=== PATIENT | male | born 1970 | race Caucasian/White ===

== ENCOUNTER 2021-02-09 08:41 | Emergency (ER) | payer BC, SELFPAY ==
[2021-02-09 08:47] VITALS: BP 152/80; PULSE 89; RESP 18; TEMP 36.2; O2SAT 99
[2021-02-09] MEDS: DEXAMETHASONE SOD PHOS INJ 4 MG/ML VIAL 10 MG PO (10:08)
[2021-02-09] MEDS: KETOROLAC (*BKC) 60 MG/2 ML VIAL IM (10:08)
--- NOTE | 2021-02-09 10:12 | ED.GENADULT ---
HPI - General Adult General Chief complaint: Unspecified <Corinne Souza PA-C - Last Filed: 02/09/21 18:29> Stated complaint: sore throat <Corinne Souza PA-C - Last Filed: 02/09/21 18:29> Time Seen by Provider: 02/09/21 09:11 <Corinne Souza PA-C - Last Filed: 02/09/21 18:29> Source: patient <SHAGGY Masterson Last Filed: 02/09/21 18:29> Mode of arrival: ambulatory <SHAGGY Masterson Last Filed: 02/09/21 18:29> Limitations: no limitations <SHAGGY Masterson Last Filed: 02/09/21 18:29> History of Present Illness HPI narrative: Patient presents with chief complaint of sore throat and left ear pain that began after having a viral-like cold 1 week ago. Patient reports that on Monday he presented to his primary care and was swabbed and treated for strep. Patient states he was placed on Augmentin. Patient reports he has noticed that his glands in his throat on both sides are still swollen and has also began having some pain to his left ear. Patient states that he began taking the Augmentin on Monday night. Patient reports that he contacted his primary care and was instructed to present to the emergency department for evaluation. Patient has not had any fevers, chills, inability to swallow, hoarse or hot potato voice. Patient denies his throat pain being worse on 1 side versus another. <SHAGGY Masterson Last Filed: 02/09/21 18:29> Related Data Home medications: Home Medications Medication Instructions Recorded Confirmed amoxicillin-pot clavulanate tablet 02/09/21 <SHAGGY Masterson Last Filed: 02/09/21 18:29> Allergies/adverse reactions: Allergies Allergy/AdvReac Type Severity Reaction Status Date / Time azithromycin Allergy Mild HIVES Verified 05/20/13 09:41 sulfamethoxazole Allergy Hives Verified 02/09/21 08:50 trimethoprim Allergy Hives Verified 02/09/21 08:50 <SHAGGY Masterson Last Filed: 02/09/21 18:29> Review of Systems Review of Systems: CONSTITUTIONAL: Denies fever, chills, or sweats. EYES: Denies visual changes, redness, or discharge. ENT: Reports congestion, sore throat, and otalgia. CARDIOVASCULAR: Denies chest pain, palpitations, or edema. RESPIRATORY: Denies cough or dyspnea. GASTROINTESTINAL: Denies abdominal pain, nausea, vomiting, or diarrhea. GENITOURINARY: Denies dysuria or hematuria. SKIN: Denies rash or itching. MUSCULOSKELETAL: Denies back pain, joint pain, or myalgia. NEUROLOGIC: Denies headache, numbness, dizziness, or weakness. PSYCHIATRIC: Denies anxiety or depression. <Corinne Souza PA-C - Last Filed: 02/09/21 18:29> Exam Narrative: GENERAL: Well-appearing, well-nourished, and in no acute distress. HEAD: Normocephalic, atraumatic. EYES: PERRLA and EOMI. ENT: Nares clear, no rhinorrhea or epistaxis. Mucous membranes moist. Oropharynx with tonsillar hypertrophy bilaterally without exudate or other lesions. Airway patent. Voice normal. Patient handling his own secretions without difficulty. Copious cerumen in B/L ears however TM visualized is not erythematous. serous fluid left ear is clear. Bilateral TMs pearly adam nonbulging NECK: Supple. mild submandibular lymphadenopathy bilaterally. CHEST: Clear to auscultation. No respiratory distress. No wheezes rales or rhonchi HEART: Regular rate and rhythm. Normal peripheral pulses. EXTREMITIES: Normal range of motion. No edema. SKIN: Warm, dry, no rash. NEURO: No focal deficits. Alert and oriented x3. PSYCH: Normal mood and affect. <Corinne Souza PA-C - Last Filed: 02/09/21 18:29> Course Vital Signs Vital signs: Vital Signs Temperature 97.2 F L 02/09/21 08:47 Pulse Rate 89 02/09/21 08:47 Respiratory Rate 18 02/09/21 08:47 Blood Pressure 152/80 H 02/09/21 08:47 Pulse Oximetry 99 02/09/21 08:47 Temperature 97.2 F L 02/09/21 08:47 Pulse Rate 89 02/09/21 08:47 Respiratory Rate 18 02/09/21 08:47 Blood Pressure
== END 2021-02-09 11:00 | disposition home or self-care (01) ==
PROVIDERS: Emergency Provider General Practice; PCP Student in an Organized Health Care Education/Training Program
DX: J02.9 Acute pharyngitis, unspecified (principal); H65.02 Acute serous otitis media, left ear
CPT/HCPCS: 96372; 99283; J1100; J1885

== ENCOUNTER 2024-07-27 18:42 | Emergency (ER) | payer BC, SELFPAY ==
[2024-07-27] VITALS (8 sets, daily range): BP systolic 113–149; BP diastolic 73–100; PULSE 67–113; RESP 7–18; TEMP 36.8; O2SAT 98–100
--- NOTE | ~2024-07-27 | XR_ITS ---
XR chest 2V Ordering provider: Roly Land MD History: 53 years Male with . RAPID HEART RATE . Comparison: None. FINDINGS: MEDIASTINUM: The cardiac silhouette is not enlarged. LUNGS: No infiltrates, effusions or pneumothorax. OTHER: No free air under the diaphragm. IMPRESSION: No acute cardiopulmonary pathology. Reviewed, dictated and finalized at location A.
--- NOTE | 2024-07-27 18:43 | ECG_ITS ---
Test Date: 2024-07-27 18:48:06 Measurements Intervals [place] Rate: 112 P: 56 ID: 170 QRS: 46 QRSD: 84 T: 56 QT: 307 QTc: 420 Interpretive Statements SINUS TACHYCARDIA ABNORMAL ECG No previous ECG available for comparison Electronically Signed On 07-27-2024 20:47:04 CDT by Herbert Moody D.O.
--- OUTSIDE RECORDS SUMMARY | 2024-07-27 18:44 | XMS_ITS | Clinical Summary ---
Author Organization [facility] Address [address] [place] [id number] Care Team Providers Care Core Maker Name Role Phone Andreas Boswell DO Primary Care Provider + Allergies Active Allergy Reactions Criticality Noted Date Comments Azithromycin Unknown,Hives Low 02/03/2012 Sulfamethoxazole Hives 02/09/2021 Sulfamethoxazole-Trimethoprim Unknown 2011 Trimethoprim Hives 02/09/2021 Medications No known medications Active Problems Problem Noted Date Diagnosed Date BMI 33.0-33.9,adult 10/09/2018 Moderate mixed hyperlipidemia not requiring stat in therapy 10/09/2018 Vitamin D deficiency 10/09/2018 Seasonal allergic rhinitis 11/28/2013 Overview (09/21/2018): Overview: Seasonal nasal allergies Encounters Date Type Department Care Team Description 05/24/2024 8:20 AM MAINT MECHANIC Laboratory Only [facility] Family [facility] Internal Medicine [address] [id number] Andreas Boswell DO 05/24/2024 Travel from Last 3 Months Immunizations Immunization Administration Dates Next Due Fluzone (IIV3, Trivalent, 0.5 ML Prefilled Syrin ge) 03/15/2024 Influenza Adult (Generic) 01/20/2022 MMR (MMRII) 10/09/2018 Shingrix 05/24/2024,03/22/2024 Tdap (Adacel) 03/15/2024 Tdap (Generic) 05/20/2013 Family History Medical History Relation Comments Diabetes Maternal Grandmother Diabetes Mother Relation Status Comments Maternal Grandmother Mother Social History Tobacco Use Types Packs/Day Years Used Date Smoking Tobacco: Never Passive Smoke Exposure: Never Smokeless Tobacco: Never Tobacco Cessation:Counseling Given: Not Answered Alcohol Use Standard Drinks/Week Comments Not Currently 0 (1 standard drink = 0.6 oz pur e alcohol) AUDIT-C Answer Date Recorded Frequency of Alcohol Consumption 2-4 times a mon th 09/21/2018 Average Number of Drinks Not on file 019 Frequency of Binge Drinking Not on file 09/02 PHQ-2 Answer Date Recorded Patient Health Questionnaire-2 Score 0 06/08/2022 Sex and Gender Information Value Date Recorded Sex Assigned at Male 03/15/2024 8:52 AM MAINT MECHANIC Legal Sex Male 10:33 AM CDT Gender Identity Male 03/15/2024 8:52 AM MAINT MECHANIC Sexual Orientation Not on file Last Filed Vital Signs Vital Sign Reading Time Taken Comments Blood Pressure 112/72 03/15/2024 8:52 AM MAINT MECHANIC Pulse 81 03/15/2024 8:52 AM MAINT MECHANIC Temperature 36.7 C (98.1 F) 03/15/2024 8:52 AM MAINT MECHANIC Respiratory Rate 16 03/15/2024 8:52 AM MAINT MECHANIC Oxygen Saturation 97% 03/15/2024 8:52 AM MAINT MECHANIC Inhaled Oxygen Concentration - - Weight 126.9 kg (279 lb 12.8 oz) 03/15/2024 8:52 AM MAINT MECHANIC Height 189.2 cm (6' 2.5 ) 03/15/2024 8:52 AM MAINT MECHANIC Body Mass Index 35.44 03/15/2024 8:52 AM MAINT MECHANIC Plan of Treatment Health Maintenance Due Date Last Done Comments Hepatitis B Vaccines (1 of 3 - 19+ 3-dose series) 1989 Pneumococcal Vaccine: 50+ Years (1 of 1 - PCV) 2020 Annual Physical 06/09/2023 06/08/2022, 10/09/2018 PHQ-2 (Physician [place]) 04/03/2024 COVID-19 Vaccine ( season) 2025 09/15/2021, 02/24/2021, 06/25/2020, Additional history exists Postponed from 12/03/2023 (Patient Refused) Colorectal Cancer Screening FIT-DNA (3 Years) 03/29/2027 03/29/2024, 03/29/2024 DTaP, Tdap and Td Vaccines (3 - Td or Tdap) 03/15/2034 03/15/2024, 05/20/2013 Hepatitis C Completed 06/08/2022 Zoster Vaccines Completed 05/24/2024, 03/22/2024 Meningococcal B Vaccine Aged Out No l onger eligible based on patient's age to complete this topic Meningococcal Vaccine Aged Out No jamey alex eligible based on patient's age to complete this topic RSV Immunizations Under 20 Months Aged Out No longer eligible based on patient's age to complete this topic Procedures Procedure Name Priority Date/Time Associated Diagnosis Comments COLLECTION VENOUS BLOOD VENIPUNCTURE Routine 05/24/2024 9:18 AM MAINT MECHANIC Screening for prostate cancer Screening for endocrine, metabolic and immunity disorder Screening for lipid disorders Annual physical exam Vitamin D deficiency CBC W/DIFF AUTOMATED Routine 05/24/2024 9:17 AM MAINT MECHANIC Screening for prostate cancer Screening for endocrine, metabolic and immunity disorder Screening for lipid disorders Annual physical exam COMPREHENSIVE METABOLIC PANEL Routine 05/24/2024 9:17 AM MAINT MECHANIC Screening for prostate cancer Screening for endocrine, metabolic and immunity disorder Screening for lipid disorders Annual physical exam TSH W/REFLEX Routine 05/24/2024 9:17 AM MAINT MECHANIC Screening for prostate cancer Screening for endocrine, metabolic and immunity disorder Screening for lipid disorders Annual physical exam LIPID PANEL Routine 05/24/2024 9:17 AM MAINT MECHANIC Screening for prostate cancer Screening for endocrine, metabolic and immunity disorder Screening for lipid disorders Annual physical exam VITAMIN D, 25 OH Routine 05/24/2024 9:17 AM MAINT MECHANIC Screening for prostate cancer Screening for endocrine, metabolic and immunity disorder Screening for lipid disorders Annual physical exam Vitamin D deficiency PROSTATE SPECIFIC ANTIGEN,SCREENING Routine 05/24/2024 9:17 AM MAINT MECHANIC Screening for prostate cancer Screening for endocrine, metabolic and immunity disorder Screening for lipid disorders Annual physical exam COLOGUARD (EXACT SCIENCE) Routine 03/29/2024 10:50 AM MAINT MECHANIC Screening for malignant neoplasm of colon HEPATITIS C ANTIBODY Routine 06/08/2022 10:02 AM MAINT MECHANIC Encounter for preventative adult health care examination Screening for lipid disorders Screening for endocrine, metabolic and immunity disorder Screening for prostate cancer Vitamin D deficiency from Last 3 Months or Most Recently Relevant to Health Maintenance Results * TSH W/REFLEX (05/24/2024 9:17 AM MAINT MECHANIC) TSH 2.204 0.358 - 3.740 uIU/ML 05/24/2024 4:27 PM MAINT MECHANIC [facility] 05/24/2024 9:17 AM MAINT MECHANIC Andreas Boswell LABORATORY Final Re sult Performing Organization Address [facility] Co de Phone Number [facility] [address] [place] [address], [place] [phone] * PROSTATE SPECIFIC ANTIGEN,SCREENING (05/24/2024 9:17 AM MAINT MECHANIC) PSA 0.86 <4.00 NG/ML 05/24/2024 3:26 PM MAINT MECHANIC [facility] Comment: ASSAY PERFORMED BY [employer] USING [employer] DIMENSION REAGENT. PATIENT RESULTS DETERMINED BY ASSAYS FROM DIFFERENT MANUFACTURERS AND/OR BY DIFFERENT METHODS MAY NOT BE COMPARABLE. 05/24/2024 9:17 AM MAINT MECHANIC Andreas Boswell DO LABORATORY Final Re sult Performing Organization Address [facility] Co de Phone Number [facility] [address] [place] [address], [place] [phone] * COMPREHENSIVE METABOLIC PANEL (05/24/2024 9:17 AM MAINT MECHANIC) SODIUM S/P/B 142 136 - 145 MMOL/L 05/24/2024 4:27 PM MAINT MECHANIC [facility] POTASSIUM S/P/B 4.7 3.5 - 5.1 MMOL/L 05/24/2024 4:27 PM [facility] CHLORIDE S/P/B 105 98 - 107 MMOL/L 05/24/2024 4:27 PM [facility] CO2 28.1 21 - 32 MMOL/L 05/24/2024 4:27 PM [facility] GLUCOSE 93 70 - 99 MG/DL 05/24/2024 4:27 PM [facility] BUN 16 7 - 18 MG/DL 05/24/2024 4:27 PM [facility] CREATININE S/P/B 0.88 0.70 - 1.30 MG/DL 05/24/2024 4:27 PM [facility] CALCIUM S/P/B 9.4 8.4 - 10.5 MG/DL 05/24/2024 4:27 PM [facility] BILIRUBIN TOTAL S/P/B 0.3 0.2 - 1.0 MG/DL 05/24/2024 4:27 PM [facility] ALKALINE PHOSPHATASE S/P/B 49 45 - 115 U/L 05/24/2024 4:27 PM [facility] AST 16 15 - 37 U/L 05/24/2024 4:27 PM [facility] ALT 27 16 - 63 U/L 05/24/2024 4:27 PM [facility] TOTAL PROTEIN S/P/B 7.6 6.4 - 8.2 G/DL 05/24/2024 4:27 PM [facility] ALBUMIN S/P/B 4.1 3.4 - 5.0 G/DL 05/24/2024 4:27 PM [facility] ANION GAP 8.9 5 - 15 MMOL/L 05/24/2024 4:27 PM [facility] Comment:REFERENCE RANGE NOT ESTABLISHED OSMOLALITY (CALC) 295 MOSM/KG 025 4:27 PM [facility] Comment:REFERENCE RANGE NOT ESTABLISHED GFR ESTIMATE >90 >90 ML/MIN/1. 73 M2 05/24/2024 4:27 PM MAINT MECHANIC [facility] GFR NOTES GFR REFERENCE S: 05/24/2024 4:27 PM [facility] Comment: THE ESTIMATED GFR IS CALCULATED USING THE 2020 CKD-EPI EQUATION. THE FOLLOWING CATEGORIES FOR GRADING RENAL FUNCTION ARE RECOMMENDED BY THE INTERNATIONAL SOCIETY OF NEPHROLOGY (KDIGO 2012 CLINICAL PRACTICE GUIDELINE). G1,NORMAL OR HIGH: >89 ml/min/1.73 m2 G2,MILDLY DECREASED: 60-89 ml/min/1.73 m2 G3A,MILDLY TO MODERATELY DECREASED: 45-59 ml/min/1.73 m2 G3B,MODERATELY TO SEVERELY DECREASED: 30-44 ml/min/1.73 m2 G4,SEVERELY DECREASED: 15-29 ml/min/1.73 m2 G5,KIDNEY FAILURE: <15 ml/min/1.73 m2 05/24/2024 9:17 AM MAINT MECHANIC us Andreas Boswell DO LABORATORY Final Re sult [facility] [address] [place] [address], * (ABNORMAL) LIPID PANEL (05/24/2024 9:17 AM MAINT MECHANIC) CHOLESTEROL 190 <200 MG/DL 05/24/2024 4:27 PM MAINT MECHANIC [facility] TRIGLYCERIDES 208(H) <150 MG/DL 05/24/2024 4:27 PM [facility] HDL 45 >40 MG/DL 05/24/2024 4:27 PM [facility] LDL-C 103(H) <100 MG/DL 05/24/2024 4:27 PM [facility] VLDL CALCULATION 42(H) 5 - 28 MG/DL 05/24/2024 4:27 PM [facility] CHOL/HDL RATIO 4.2(H) 0.0 - 4.0 05/24/2024 4:27 PM [facility] LDL/HDL 2.3(H) 0.41 - 2.13 05/24/2024 4:27 PM [facility] NON HDL CHOLESTEROL 145(H) <140 MG/DL 05/24/2024 4:27 PM [facility] 05/24/2024 9:17 AM MAINT MECHANIC us Andreas Boswell DO LABORATORY Final Re sult [facility] [address] [place] [address], * CBC W/DIFF AUTOMATED (05/24/2024 9:17 AM MAINT MECHANIC) WBC 5.31 4.00 - 10.80 x10'3/uL 05/24/2024 3:05 PM [facility] RBC 4.74 4.50 - 6.10 x10'6/uL 05/24/2024 3:05 PM [facility] HGB 13.8 13.0 - 18.0 G/DL 05/24/2024 3:05 PM [facility] HCT 41.7 37.0 - 52.0 % 05/24/2024 3:05 PM [facility] MCV 88.0 78.0 - 100.0 FL 05/24/2024 3:05 PM [facility] MCH 29.1 27.0 - 31.0 PG 05/24/2024 3:05 PM [facility] MCHC 33.1 33.0 - 36.0 G/DL 05/24/2024 3:05 PM [facility] RDW 14.1 11.5 - 14.5 % 05/24/2024 3:05 PM [facility] PLT 237 150 - 350 x10'3/uL 05/24/2024 3:05 PM [facility] MPV 9.3 7.4 - 10.4 FL 05/24/2024 3:05 PM [facility] DIFFERENTIAL TYPE AUTOMATED DIFFERENTIAL 05/24/2024 3:05 PM [facility] NEUTROPHILS % 53.4 % 05/24/2024 3:05 PM [facility] LYMPHOCYTES % 37.9 % 05/24/2024 3:05 PM [facility] MONOCYTES % 6.2 % 05/24/2024 3:05 PM [facility] EOSINOPHILS % 2.1 % 05/24/2024 3:05 PM [facility] BASOPHILS % 0.4 % 05/24/2024 3:05 PM [facility] IMMATURE GRANS % 0.0 % 05/24/2024 3:05 PM [facility] ABS. NEUTROPHILS 2.84 1.60 - 8.30 x10'3/uL 05/24/2024 3:05 PM [facility] ABS. LYMPHOCYTES 2.01 0.80 - 4.70 x10'3/uL 05/24/2024 3:05 PM [facility] ABS. MONOCYTES 0.33 0.00 - 1.50 x10'3/uL 05/24/2024 3:05 PM [facility] ABS. EOSINOPHILS 0.11 0.00 - 0.40 x10'3/uL 05/24/2024 3:05 PM [facility] ABS. BASOPHILS 0.02 0.00 - 0.20 x10'3/uL 05/24/2024 3:05 PM [facility] ABS. IMMATURE GRANULOCYTES 0.00 0.00 - 0.03 x10'3/uL 05/24/2024 3:05 PM MAINT MECHANIC [facility] 05/24/2024 9:17 AM MAINT MECHANIC [facility] Final Re sult Performing Organization Address [facility] de Phone Number [facility] [address] [place] [address], * (ABNORMAL) VITAMIN D, 25 OH (05/24/2024 9:17 AM MAINT MECHANIC) VITAMIN D 25 HYDROXY TOTAL S/P/B 17.9(L) 30 - 100 NG/ML 05/24/2024 4:27 PM MAINT MECHANIC [facility] Comment: DEFICIENT <20 INSUFFICIENT 20-30 SUFFICIENT 30-100 05/24/2024 9:17 AM MAINT MECHANIC Andreas Anna Elbert LABORATORY Final Re sult Performing Organization Address [facility] de Phone Number [facility] [address] [place] [address], * COLOGUARD (EXACT SCIENCE) (03/29/2024 10:50 AM MAINT MECHANIC) COLOGUARD RESULT Negative Negative [facility] (CLIA #:[id number]) Comment: NEGATIVE TEST RESULT. A negative Cologuard result indicates a low likelihood that a colorectal cancer (CRC) or advanced adenoma (adenomatous polyps with more advanced pre-malignant features) is present. The chance that a person with a negative Cologuard test has a colorectal cancer is less than 1 in 1500 (negative predictive value >99.9%) or has an advanced adenoma is less than 5.3% (negative predictive value 94.7%). These data are based on a prospective cross-sectional study of 10,000 individuals at average risk for colorectal cancer who were screened with both Cologuard and colonoscopy. (Dayana Angulo, N Engl J Med 2014;370(14):3564-9698) The normal value (reference range) for this assay is negative. COLOGUARD RE-SCREENING RECOMMENDATION: Periodic colorectal cancer screening is an important part of preventive healthcare for asymptomatic individuals at average risk for colorectal cancer. Following a negative Cologuard result, the [place] [employer] Society and U.S. Multi-Society Task Force screening guidelines recommend a Cologuard re-screening interval of 3 years. References: [place] [employer] Guideline for Colorectal Cancer Screening: https://www.cancer.org/cancer/ftqmx-ilsmzp-wqphrj/ufzfhdwdv-ddzrxlotz-xkimffv/ac s-rec ommendations.html.; Prashant DK, Jinny HA, Eugene NorthK, Colorectal Cancer Screening: Recommendations for Physicians and Patients from the U.S. Multi-Society Task Force on Colorectal Cancer Screening , Am J Gastroenterology 2017; 112:8285-0341. TEST DESCRIPTION: Composite algorithmic analysis of stool DNA-biomarkers with hemoglobin immunoassay. Quantitative values of individual biomarkers are not reportable and are not associated with individual biomarker result reference ranges. Cologuard is intended for colorectal cancer screening of adults of either sex, 45 years or older, who are at average-risk for colorectal cancer (CRC). Cologuard has been approved for use by the U.S. FDA. The performance of Cologuard was established in a cross sectional study of average-risk adults aged 50-84. Cologuard performance in patients ages 45 to 49 years was estimated by sub-group analysis of near-age groups. Colonoscopies performed for a positive result may find as the most clinically significant lesion: colorectal cancer [4.0%], advanced adenoma (including sessile serrated polyps greater than or equal to 1cm diameter) [20%] or non- advanced adenoma [31%]; or no colorectal neoplasia [45%]. These estimates are derived from a prospective cross-sectional screening study of 10,000 individuals at average risk for colorectal cancer who were screened with both Cologuard and colonoscopy. (Dayana Angulo, N Engl J Med 2014;370(14):0118-0960.) Cologuard may produce a false negative or false positive result (no colorectal cancer or precancerous polyp present at colonoscopy follow up). A negative Cologuard test result does not guarantee the absence of CRC or advanced adenoma (pre-cancer). The current Cologuard screening interval is every 3 years. ([place] [employer] Society and U.S. Multi-Society Task Force). Cologuard performance data in a 10,000 patient pivotal study using colonoscopy as the reference method can be accessed at the following location: www.[employer].Thanx/results. Additional description of the Cologuard test process, warnings and precautions can be found at www.cologuard.com. STOOL STOOL SPECIMEN / Unknown 03/29/2024 10:50 AM MAINT MECHANIC 03/30/2024 11:04 AM MAINT MECHANIC Andreas Boswell DO BODY FLUIDS AND STOOLS O RDERABLES Final Result Performing Organization Address [facility] Co de Phone Number [employer] [address] [place] [address], [place] [phone] [employer] (CLIA #:[id number]) [address] [place] [address] * HEPATITIS C ANTIBODY (06/08/2022 10:02 AM MAINT MECHANIC) HEPATITIS C AB NON-REACTI VE NON-REACT JACKELIN 06/08/2022 6:37 PM MAINT MECHANIC [facility] Comment: ANTIBODIES TO HCV NOT DETECTED. DOES NOT EXCLUDE THE POSSIBILITY OF EXPOSURE TO HCV. 06/08/2022 10:0 2 AM MAINT MECHANIC Andreas Boswell DO LABORATORY Final Re sult [facility] [address] [place] [address], [place] [phone] [id number] from Last 3 Months or Most Recently Relevant to Health Maintenance Insurance [facility] Care Teams Core Maker Relationship Specialty Start Date End Date Andreas Boswell DO [address] [place] [id number] PCP - General FAMILY PRACTICE 09/21/18
[2024-07-27 19:01] LABS: Basophils Absolute Auto 0.1 K/mm3 (0.0-0.1); Basophils Percent Auto 0.6 % (0.2-1.2); Eosinophils Absolute Auto 0.2 K/mm3 (0-0.3); Hematocrit 42.3 % (42.0-52.0); Hemoglobin 14.1 g/dL (14.0-18.0); Immature Granulocyte Absolute 0.03 K/mm3 (0.00-0.031); Immature Granulocyte Percent A 0.4 % (0-0.5); Lymphocytes Absolute Auto 3.39 K/mm3 (0.9-3.2); Lymphocytes Percent Auto 43.4 % (18.3-44.2); Mean Corpuscular HGB Conc 33.3 g/dl (32-36); Mean Corpuscular Hemoglobin 28.9 pg (26-34); Mean Corpuscular Volume 86.7 fl (80-100); Mean Platelet Volume 8.9 fl (7.4-10.4); Monocytes Absolute Auto 0.5 K/mm3 (0.1-0.6); Monocytes Percent Auto 6.4 % (2.6-8.5); Neutrophils Absolute Auto 3.7 K/mm3 (1.3-6.7); Neutrophils Percent Auto 47.2 % (45.5-73.1); Platelet Count Result 250 k/mm3 (150-375); Red Blood Count 4.88 M/mm3 (4.6-6.20); Red Cell Distribution Width 13.5 % (11.5-14.5); White Blood Count 7.8 K/mm3 (4.5-10.0)
[2024-07-27 19:12] LABS: Alanine Aminotransferase 25 U/L (6-50); Albumin Level 4.7 g/dL (3.5-5.1); Alkaline Phosphatase 50 U/L (38-126); Anion Gap 13 mmol/L (4-12); Aspartate Amino Transferase 27 U/L (17-59); Bilirubin,Total 0.2 mg/dL (0.2-1.3); Blood Urea Nitrogen 18 mg/dL (9-20); Calcium 9.3 mg/dL (8.4-10.2); Carbon Dioxide 23 mmol/L (22-30); Chloride 105 mmol/L (98-107); Estimated CRCL calculation 106 ml/min; Estimated Glomerular Filt Rate > 60; Glucose 126 mg/dL (65-110); Lipase 217 U/L (23-300); Potassium 4.1 mmol/L (3.4-5.0); Sodium 141 mmol/L (137-145)
[2024-07-27 19:23] LABS: Troponin I < 0.012 ng/mL (0.000-0.034)
[2024-07-27 19:41] LABS: Prothrombin Time 13.3 Seconds (11.1-14.7)
[2024-07-27 19:42] LABS: Partial Thromboplastin Time 24.2 Seconds (22.3-36.8)
--- NOTE | 2024-07-27 20:26 | PC.NURSE ---
Patient ambulates to the triage/intake desk and states he is feeling better. Patient returned to waiting room after xray. Patient ambulates back to sit down with is visitor.
--- OUTSIDE RECORDS SUMMARY | 2024-07-27 22:41 | XMS_ITS | Clinical Summary ---
Author Organization [facility] Address [address] [place] [address] Care Team Providers Care Manager Administrative Name Role Phone Andreas Boswell DO Primary [...] Department Care Team Description 05/24/2024 8:20 AM CHIEF SERVICE OBSERVER Laboratory Only [facility] Family & Internal Medicine [address] [id number] Andreas Boswell DO 05/24/2024 Travel from Last [...] Sex Assigned at Male 03/15/2024 8:52 AM CHIEF SERVICE OBSERVER Legal Sex Male 10:33 AM CDT Gender Identity Male 03/15/2024 8:52 AM CHIEF SERVICE OBSERVER Sexual Orientation Not on file Last Filed Vital Signs Vital Sign Reading Time Taken Comments Blood Pressure 112/72 03/15/2024 8:52 AM CHIEF SERVICE OBSERVER Pulse 81 03/15/2024 8:52 AM CHIEF SERVICE OBSERVER Temperature 36.7 C (98.1 F) 03/15/2024 8:52 AM CHIEF SERVICE OBSERVER Respiratory Rate 16 03/15/2024 8:52 AM CHIEF SERVICE OBSERVER Oxygen Saturation 97% 03/15/2024 8:52 AM CHIEF SERVICE OBSERVER Inhaled Oxygen Concentration - - Weight 126.9 kg (279 lb 12.8 oz) 03/15/2024 8:52 AM CHIEF SERVICE OBSERVER Height 189.2 cm (6' 2.5 ) 03/15/2024 8:52 AM CHIEF SERVICE OBSERVER Body Mass Index 35.44 03/15/2024 8:52 AM CHIEF SERVICE OBSERVER Plan of Treatment Health Maintenance Due Date Last Done Comments Hepatitis B Vaccines (1 of 3 - 19+ 3-dose series) 1989 Pneumococcal Vaccine: 50+ Years (1 of 1 - PCV) 2020 Annual Physical 06/09/2023 06/08/2022, 10/09/2018 PHQ-2 (Physician [place]) 04/03/2024 COVID-19 Vaccine ( season) 2025 09/15/2021, [...] VENOUS BLOOD VENIPUNCTURE Routine 05/24/2024 9:18 AM CHIEF SERVICE OBSERVER Screening for prostate cancer Screening for endocrine, metabolic and immunity disorder Screening for lipid disorders Annual physical exam Vitamin D deficiency CBC W/DIFF AUTOMATED Routine 05/24/2024 9:17 AM CHIEF SERVICE OBSERVER Screening for prostate cancer Screening for endocrine, metabolic and immunity disorder Screening for lipid disorders Annual physical exam COMPREHENSIVE METABOLIC PANEL Routine 05/24/2024 9:17 AM CHIEF SERVICE OBSERVER Screening for prostate cancer Screening for endocrine, metabolic and immunity disorder Screening for lipid disorders Annual physical exam TSH W/REFLEX Routine 05/24/2024 9:17 AM CHIEF SERVICE OBSERVER Screening for prostate cancer Screening for endocrine, metabolic and immunity disorder Screening for lipid disorders Annual physical exam LIPID PANEL Routine 05/24/2024 9:17 AM CHIEF SERVICE OBSERVER Screening for prostate cancer Screening for endocrine, metabolic and immunity disorder Screening for lipid disorders Annual physical exam VITAMIN D, 25 OH Routine 05/24/2024 9:17 AM CHIEF SERVICE OBSERVER Screening for prostate cancer Screening for endocrine, metabolic and immunity disorder Screening for lipid disorders Annual physical exam Vitamin D deficiency PROSTATE SPECIFIC ANTIGEN,SCREENING Routine 05/24/2024 9:17 AM CHIEF SERVICE OBSERVER Screening for prostate cancer Screening for endocrine, metabolic and immunity disorder Screening for lipid disorders Annual physical exam COLOGUARD (EXACT SCIENCE) Routine 03/29/2024 10:50 AM CHIEF SERVICE OBSERVER Screening for malignant neoplasm of colon HEPATITIS C ANTIBODY Routine 06/08/2022 10:02 AM CHIEF SERVICE OBSERVER Encounter for preventative adult health care examination Screening for lipid disorders Screening for endocrine, metabolic and immunity disorder Screening for prostate cancer Vitamin D deficiency from Last 3 Months or Most Recently Relevant to Health Maintenance Results * TSH W/REFLEX (05/24/2024 9:17 AM CHIEF SERVICE OBSERVER) TSH 2.204 0.358 - 3.740 uIU/ML 05/24/2024 4:27 PM CHIEF SERVICE OBSERVER [facility] 05/24/2024 9:17 AM CHIEF SERVICE OBSERVER Andreas Boswell LABORATORY Final Re sult Performing Organization Address [facility] Co de Phone Number [facility] [address] [place] [address], [place] [phone] * PROSTATE SPECIFIC ANTIGEN,SCREENING (05/24/2024 9:17 AM CHIEF SERVICE OBSERVER) PSA 0.86 <4.00 NG/ML 05/24/2024 3:26 PM CHIEF SERVICE OBSERVER [facility] Comment: ASSAY PERFORMED BY [employer] METHODOLOG[employer] USING SIEMENS DIMENSION REAGENT. PATIENT RESULTS DETERMINED BY ASSAYS FROM DIFFERENT MANUFACTURERS AND/OR BY DIFFERENT METHODS MAY NOT BE COMPARABLE. 05/24/2024 9:17 AM CHIEF SERVICE OBSERVER Andreas Boswell DO LABORATORY Final Re sult Performing Organization Address [facility] Co de Phone Number [facility] [address] [place] [address], [place] [phone] * COMPREHENSIVE METABOLIC PANEL (05/24/2024 9:17 AM CHIEF SERVICE OBSERVER) SODIUM S/P/B 142 136 - 145 MMOL/L 05/24/2024 4:27 PM CHIEF SERVICE OBSERVER [facility] POTASSIUM S/P/B 4.7 3.5 - 5.1 MMOL/L 05/24/2024 4:27 PM [facility] CHLORIDE S/P/B 105 98 - 107 MMOL/L 05/24/2024 4:27 PM [facility] CO2 28.1 21 - 32 MMOL/L 05/24/2024 4:27 PM [facility] GLUCOSE 93 70 - 99 MG/DL 05/24/2024 4:27 PM [facility] BUN 16 7 - 18 MG/DL 05/24/2024 4:27 PM [facility] CREATININE S/P/B 0.88 0.70 - 1.30 MG/DL 05/24/2024 4:27 PM [facility] CALCIUM S/P/B 9.4 8.4 - 10.5 MG/DL 05/24/2024 4:27 PM [facility] BILIRUBIN TOTAL S/P/B 0.3 0.2 - 1.0 MG/DL 05/24/2024 4:27 PM [facility] ALKALINE PHOSPHATASE S/P/B 49 45 - 115 U/L 05/24/2024 4:27 PM [facility] AST 16 15 - 37 U/L 05/24/2024 4:27 PM [facility] ALT 27 16 - 63 U/L 05/24/2024 4:27 PM [facility] TOTAL PROTEIN S/P/B 7.6 6.4 - 8.2 G/DL 05/24/2024 4:27 PM [facility] ALBUMIN S/P/B 4.1 3.4 - 5.0 G/DL 05/24/2024 4:27 PM [facility] ANION GAP 8.9 5 - 15 MMOL/L 05/24/2024 4:27 PM [facility] Comment:REFERENCE RANGE NOT ESTABLISHED OSMOLALITY (CALC) 295 MOSM/KG 025 4:27 PM [facility] Comment:REFERENCE RANGE NOT ESTABLISHED GFR ESTIMATE >90 >90 ML/MIN/1. 73 M2 05/24/2024 4:27 PM CHIEF SERVICE OBSERVER [facility] GFR NOTES GFR REFERENCE S: 05/24/2024 4:27 PM [facility] Comment: THE ESTIMATED GFR IS CALCULATED [...] FAILURE: <15 ml/min/1.73 m2 05/24/2024 9:17 AM CHIEF SERVICE OBSERVER us Andreas Boswell DO LABORATORY Final Re sult [facility] [address] [place] [address], * (ABNORMAL) LIPID PANEL (05/24/2024 9:17 AM CHIEF SERVICE OBSERVER) CHOLESTEROL 190 <200 MG/DL 05/24/2024 4:27 PM CHIEF SERVICE OBSERVER [facility] TRIGLYCERIDES 208(H) <150 MG/DL 05/24/2024 4:27 PM [facility] HDL 45 >40 MG/DL 05/24/2024 4:27 PM [facility] LDL-C 103(H) <100 MG/DL 05/24/2024 4:27 PM [facility] VLDL CALCULATION 42(H) 5 - 28 MG/DL 05/24/2024 4:27 PM [facility] CHOL/HDL RATIO 4.2(H) 0.0 - 4.0 05/24/2024 4:27 PM [facility] LDL/HDL 2.3(H) 0.41 - 2.13 05/24/2024 4:27 PM [facility] NON HDL CHOLESTEROL 145(H) <140 MG/DL 05/24/2024 4:27 PM [facility] 05/24/2024 9:17 AM CHIEF SERVICE OBSERVER us Andreas Boswell DO LABORATORY Final Re sult [facility] [address] [place] [address], * CBC W/DIFF AUTOMATED (05/24/2024 9:17 AM CHIEF SERVICE OBSERVER) WBC 5.31 4.00 - 10.80 x10'3/uL 05/24/2024 3:05 PM [facility] RBC 4.74 4.50 - 6.10 x10'6/uL 05/24/2024 3:05 PM [facility] HGB 13.8 13.0 - 18.0 G/DL 05/24/2024 3:05 PM [facility] HCT 41.7 37.0 - 52.0 % 05/24/2024 3:05 PM [facility] MCV 88.0 78.0 - 100.0 FL 05/24/2024 3:05 PM [facility] MCH 29.1 27.0 - 31.0 PG 05/24/2024 3:05 PM [facility] MCHC 33.1 33.0 - 36.0 G/DL 05/24/2024 3:05 PM [facility] RDW 14.1 11.5 - 14.5 % 05/24/2024 3:05 PM [facility] PLT 237 150 - 350 x10'3/uL 05/24/2024 3:05 PM [facility] MPV 9.3 7.4 - 10.4 FL 05/24/2024 3:05 PM [facility] DIFFERENTIAL TYPE AUTOMATED DIFFERENTIAL 05/24/2024 3:05 PM [facility] NEUTROPHILS % 53.4 % 05/24/2024 3:05 PM [facility] LYMPHOCYTES % 37.9 % 05/24/2024 3:05 PM [facility] MONOCYTES % 6.2 % 05/24/2024 3:05 PM [facility] EOSINOPHILS % 2.1 % 05/24/2024 3:05 PM [facility] BASOPHILS % 0.4 % 05/24/2024 3:05 PM [facility] IMMATURE GRANS % 0.0 % 05/24/2024 3:05 PM [facility] ABS. NEUTROPHILS 2.84 1.60 - 8.30 x10'3/uL 05/24/2024 3:05 PM [facility] ABS. LYMPHOCYTES 2.01 0.80 - 4.70 x10'3/uL 05/24/2024 3:05 PM [facility] ABS. MONOCYTES 0.33 0.00 - 1.50 x10'3/uL 05/24/2024 3:05 PM [facility] ABS. EOSINOPHILS 0.11 0.00 - 0.40 x10'3/uL 05/24/2024 3:05 PM [facility] ABS. BASOPHILS 0.02 0.00 - 0.20 x10'3/uL 05/24/2024 3:05 PM [facility] ABS. IMMATURE GRANULOCYTES 0.00 0.00 - 0.03 x10'3/uL 05/24/2024 3:05 PM CHIEF SERVICE OBSERVER [facility] 05/24/2024 9:17 AM CHIEF SERVICE OBSERVER [facility] Final Re sult Performing Organization Address [facility] de Phone Number [facility] [address] [place] [address], * (ABNORMAL) VITAMIN D, 25 OH (05/24/2024 9:17 AM CHIEF SERVICE OBSERVER) VITAMIN D 25 HYDROXY TOTAL S/P/B 17.9(L) 30 - 100 NG/ML 05/24/2024 4:27 PM CHIEF SERVICE OBSERVER [facility] Comment: DEFICIENT <20 INSUFFICIENT 20-30 SUFFICIENT 30-100 05/24/2024 9:17 AM CHIEF SERVICE OBSERVER Andreas Anna Elbert LABORATORY Final Re sult Performing Organization Address [facility] de Phone Number [facility] [address] [place] [address], * COLOGUARD (EXACT SCIENCE) (03/29/2024 10:50 AM CHIEF SERVICE OBSERVER) COLOGUARD RESULT Negative Negative [employer] (CLIA #:[id number]) Comment: NEGATIVE TEST RESULT. A negative Cologuard [...] colonoscopy. (Dayana Angulo, N Engl J Med 2014;370(14):4665-8160) The normal value (reference range) for this assay is negative. COLOGUARD RE-SCREENING RECOMMENDATION: Periodic colorectal cancer screening is an important part of preventive healthcare for asymptomatic individuals at average risk for colorectal cancer. Following a negative Cologuard result, the [place] [employer] and U.S. Multi-Society Task Force screening guidelines recommend a Cologuard re-screening interval of 3 years. References: [place] [employer] Guideline for Colorectal Cancer Screening: https://www.cancer.org/cancer/ynnml-xrbogh-pqsxba/zqchguikx-akpcgddcm-dwfwmpi/ac s-rec ommendations.html.; Prashant DK, Jinny HA, Eugene NorthK, Colorectal Cancer Screening: Recommendations for Physicians and Patients from the U.S. Multi-Society Task Force on Colorectal Cancer Screening , Am J Gastroenterology 2017; 112:5876-7749. TEST DESCRIPTION: Composite algorithmic analysis of stool [...] colonoscopy. (Dayana Angulo, N Engl J Med 2014;370(14):0045-7673.) Cologuard may produce a false negative or false positive result (no colorectal cancer or precancerous polyp present at colonoscopy follow up). A negative Cologuard test result does not guarantee the absence of CRC or advanced adenoma (pre-cancer). The current Cologuard screening interval is every 3 years. ([place] [employer] and U.S. Multi-Society Task Force). Cologuard performance data in a 10,000 patient pivotal study using colonoscopy as the reference method can be accessed at the following location: www.[employer].VersionOne/results. Additional description of the Cologuard test process, warnings and precautions can be found at www.cologuard.com. STOOL STOOL SPECIMEN / Unknown 03/29/2024 10:50 AM CHIEF SERVICE OBSERVER 03/30/2024 11:04 AM CHIEF SERVICE OBSERVER Andreas Bowsell DO BODY FLUIDS AND STOOLS O RDERABLES Final Result Performing Organization Address [facility] Co de Phone Number [employer], [facility] [address] [place] [address], [place] [phone] [employer] (CLIA #:[id number]) [address] [place] [address] * HEPATITIS C ANTIBODY (06/08/2022 10:02 AM CHIEF SERVICE OBSERVER) HEPATITIS C AB NON-REACTI VE NON-REACT JACKELIN 06/08/2022 6:37 PM CHIEF SERVICE OBSERVER [facility] Comment: ANTIBODIES TO HCV NOT DETECTED. DOES NOT EXCLUDE THE POSSIBILITY OF EXPOSURE TO HCV. 06/08/2022 10:0 2 AM CHIEF SERVICE OBSERVER Andreas Boswell DO LABORATORY Final Re sult [facility] [address] [place] [address], [place] [phone] from Last 3 Months or Most Recently Relevant to Health Maintenance Insurance [facility] Care Teams Manager Administrative Relationship Specialty Start Date End Date Andreas Boswell DO [address] [place] [id number] PCP - General FAMILY PRACTICE 09/21/18
--- NOTE | 2024-07-27 23:22 | ED_ITS ---
HPI - Chest Pain General Chief Complaint: Chest Pain Stated Complaint: irregular heart rate Time Seen by Provider: 07/27/24 22:21 History of Present Illness HPI narrative: Patient is a 53-year-old male who presents to the ER with complaints of an irregular heart rate. He reports he was at the gas station when his heart started fluttering. Patient reports he checked his apple watch and his heart rate was up to 189 beats per minute. He reports he typically consumes 2 cups of coffee a day and does not drink much water. Patient reports his only medical history is that he has low vitamin-D levels and has had recurrent right sided swollen lymph node. He denies any shortness of breath, lower extremity edema, wheezing or recent fevers. Related Data Home Medications ?Medication ?Instructions ?Recorded ?Confirmed ?Last Taken ?Type amoxicillin 875 mg-potassium tablet 02/09/21 Unknown History clavulanate 125 mg tablet Allergies Allergy/AdvReac Type Severity Reaction Status Date / Time azithromycin Allergy Mild HIVES Verified 05/20/13 09:41 sulfamethoxazole Allergy Hives Verified 02/09/21 08:50 trimethoprim Allergy Hives Verified 02/09/21 08:50 Review of Systems 2 Review of Systems: All systems reviewed & are unremarkable except as noted in HPI and below Exam 2 Narrative: GENERAL: Well appearing, well-nourished, non-toxic, in no acute distress. HEAD: Normocephalic, atraumatic. NECK: Supple. No adenopathy, no masses. RESPIRATORY: Airway patent, respirations nonlabored. Clear to auscultation bilaterally, no rales, rhonchi, wheezing. CARDIOVASCULAR: Regular rate and rhythm without murmurs, rubs, or gallops. Peripheral pulses 2+ and equal bilaterally. ABDOMINAL: Soft, nontender, nondistended, no hepatosplenomegaly. Normoactive BS. MUSCULOSKELETAL: Moves all extremities. Strength/ROM intact without gross deformities. SKIN: Warm, dry, normal color. No rashes. NEURO: A&O X3. Speech clear. Cranial nerves II-XII intact. No ataxic movements. PSYCHIATRIC: Appropriate mood and affect. Normal interaction. Course Vital Signs Vital signs: Vital Signs Temperature 36.8 C 07/27/24 18:52 Pulse Rate 113 H 07/27/24 18:52 Respiratory Rate 18 07/27/24 18:52 Blood Pressure 149/100 H 07/27/24 18:52 Pulse Oximetry 100 07/27/24 18:52 Oxygen Delivery Room Air 07/27/24 18:52 Temperature 36.8 C 07/27/24 18:52 Pulse Rate 72 07/27/24 23:54 Respiratory Rate 8 L 07/27/24 23:31 Blood Pressure 113/80 07/27/24 23:31 Pulse Oximetry 100 07/27/24 23:54 Oxygen Delivery Room Air 07/27/24 23:54 MDM - Chest Pain MDM Narrative Medical decision making narrative: Patient is a 53-year-old male who presents to the ER with complaints of an irregular heart rate. He reports he was at the gas station when his heart started fluttering. Patient reports he checked his apple watch and his heart rate was up to 189 beats per minute. He reports he typically consumes 2 cups of coffee a day and does not drink much water. Patient reports his only medical history is that he has low vitamin-D levels and has had recurrent right sided swollen lymph node. He denies any shortness of breath, lower extremity edema, wheezing or recent fevers. Labs Ordered: CBC, CMP, troponin, D-dimer, UA, TSH, BMP, INR, PTT, lipase Imaging Ordered: chest x-ray Medications Ordered: 1 L normal saline IV bolus Results: Patient's chest x-ray indicates No acute cardiopulmonary pathology. Diagnosis: Atypical chest pain, irregular heart rate Risks: HEART score: low risk HEART Score for Major Cardiac Events from [email or web address] on 07/28/2024 All calculations should be rechecked by clinician prior to use RESULT SUMMARY: 1 points Low Score (0-3 points) Risk of MACE of 0.9-1.7%. INPUTS: History ?> 0 = Slightly suspicious EKG ?> 0 = Normal Age ?> 1 = 45-64 Risk factors ?> 0 = No known risk factors Initial troponin ?> 0 = <=Normal limit Consults: cardiology (outpatient) Patient Education/Shared MDM: Results of lab work and imaging shared with patient. He reports he has had no episodes of chest pain palpitations during his visit in the ER. Patient strongly advised to maintain hydration status upon discharge and follow-up with his PCP as soon as possible. He can also follow-up with Cardiology. He will be discharged home with no new prescriptions. Strict return precautions provided. Patient verbalized understanding and is in agreement with plan. Vital signs stable at time of discharge. All questions answered. Differential Diagnosis Differential diagnosis: Likely atypical chest pain, st elevation myocardial infarction, costochondritis, chest pain and other (Chest palpitations) Lab Data Attestation: I reviewed the patient's lab results. 07/27/24 18:56 07/27/24 18:56 Labs: Lab Results 07/27/24 07/27/24 Range/Units 18:56 23:51 WBC 7.8 (4.5-10.0) K/mm3 RBC 4.88 (4.6-6.20) M/mm3 Hgb 14.1 (14.0-18.0) g/dL Hct 42.3 (42.0-52.0) % MCV 86.7 (80-100) fl MCH 28.9 (26-34) pg MCHC 33.3 (32-36) g/dl RDW 13.5 (11.5-14.5) % Plt Count 250 (150-375) k/mm3 MPV 8.9 (7.4-10.4) fl Immature Gran % (Auto) 0.4 (0-0.5) % Neut % (Auto) 47.2 (45.5-73.1) % Lymph % (Auto) 43.4 (18.3-44.2) % [place] % (Auto) 6.4 (2.6-8.5) % Eos % (Auto) 2.0 (0-4.4) % Baso % (Auto) 0.6 (0.2-1.2) % Lymph # (Auto) 3.39 H (0.9-3.2) K/mm3 [place] # (Auto) 0.5 (0.1-0.6) K/mm3 Eos # (Auto) 0.2 (0-0.3) K/mm3 Baso # (Auto) 0.1 (0.0-0.1) K/mm3 Abs Immat Gran (auto) 0.03 (0.00-0.031) K/mm3 Absolute Neuts (auto) 3.7 (1.3-6.7) K/mm3 Absolute Nucleated RBC 0.000 (0.0-0.012) K/mm3 Nucleated RBC % 0.0 (0.0-0.2) % PT 13.3 (11.1-14.7) Seconds INR 1.0 APTT 24.2 (22.3-36.8) Seconds D-Dimer 0.31 (<0.48) ug/mL Sodium 141 (137-145) mmol/L Potassium 4.1 (3.4-5.0) mmol/L Chloride 105 (98-107) mmol/L Carbon Dioxide 23 (22-30) mmol/L Anion Gap 13 H (4-12) mmol/L BUN 18 (9-20) mg/dL Creatinine 0.99 (0.7-1.3) mg/dL Estim Creat Clear Calc 106 ml/min Estimated GFR > 60 (59 - ) Glucose 126 H (65-110) mg/dL Calcium 9.3 (8.4-10.2) mg/dL Total Bilirubin 0.2 (0.2-1.3) mg/dL AST 27 (17-59) U/L ALT 25 (6-50) U/L Alkaline Phosphatase 50 (38-126) U/L Troponin I < 0.012 < 0.012 (0.000-0.034) ng/mL NT-Pro-B Natriuret Pep 61 (19.9-100) pg/mL Total Protein 8.0 (6.3-8.2) g/dL Albumin 4.7 (3.5-5.1) g/dL Lipase 217 (23-300) U/L TSH (Reflex) 3.490 (0.465-4.68) uIU/mL Imaging Data Attestation: I personally reviewed and interpreted this imaging study as follows: Radiologist's impression: Impressions Chest X-Ray 07/27/24 20:42 IMPRESSION: No acute cardiopulmonary pathology. Discharge Plan Discharge Clinical Impression: Atypical chest pain, Irregular heart rate Patient Disposition: Home Condition: Stable Instructions: Antibiotic Form, Heart Palpitations (ED) Additional Instructions: Please return to the ER with any worsening symptoms. Follow-up with primary care provider as soon as possible. You may also call Cardiology to make an appointment with them. Patient Language: Greenlandic Prescriptions: No Action amoxicillin-pot clavulanate 875-125 mg tablet methylprednisolone [Medrol (Lester)] 4 mg tablets,dose pack See Rx Instructions .ROUTE .COMPLEX Qty: 21 0RF Rx Instructions: orally per package directions fluticasone propionate [Flonase Allergy Relief] 50 mcg/actuation spray,suspension 2 spray intranasal DAILY Qty: 16 0RF Rx Instructions: administer into each nostril Follow-up/Referrals: Tani Chan MD [Physician] - (cardiology) Elbert,DO Andreas [Primary Care Provider] - Time of Disposition: 01:04
--- NOTE | 2024-07-27 23:39 | ECG_ITS ---
Test Date: 2024-07-27 23:44:42 Measurements Intervals Ryan Rate: 68 P: 55 WV: 180 QRS: 38 QRSD: 90 T: 40 QT: 367 QTc: 392 Interpretive Statements SINUS RHYTHM ST ELEVATION IN DIFFUSE LEADS- PROBABLY EARLY REPOLARIZATION BORDERLINE ECG Compared to ECG 07/27/2024 18:48:06 HEART RATE HAS DECREASED Early repolarization now present Electronically Signed On 07-28-2024 07:50:54 CDT by Herbert Moody D.O.
[2024-07-27 23:51] LABS: NT Pro B Type Natriuretic Pept 61 pg/mL (19.9-100)
[2024-07-27] MEDS: SODIUM CHLORIDE 0.9% IV 1,000 ML 999 ML IV CONT (23:51)
[2024-07-28 00:19] LABS: Troponin I < 0.012 ng/mL (0.000-0.034)
[2024-07-28 00:50] LABS: D Dimer 0.31 ug/mL (<0.48)
--- NOTE | 2024-07-28 00:55 | PC.NURSE ---
patient verbalized he would like to leave and to have iv removed.
[2024-07-28 01:15] VITALS: BP 139/95; PULSE 66; RESP 20; O2SAT 97
== END 2024-07-28 01:19 | disposition home or self-care (01) ==
PROVIDERS: Student in an Organized Health Care Education/Training Program; Emergency Provider Registered Nurse; PCP Student in an Organized Health Care Education/Training Program
DX: I49.8 Other specified cardiac arrhythmias (principal); R07.89 Other chest pain; R00.0 Tachycardia, unspecified
CPT/HCPCS: 36415; 71046; 80053; 83690; 83880; 84443; 84484; 85025; 85380; 85610; 85730; 93005; 96360; 99284; J7030